=== PATIENT | female | born 1965 | race Caucasian/White ===

== ENCOUNTER 2019-02-19 18:31 | Emergency (ER) | payer BC ==
--- NOTE | 2019-02-19 19:08 | Emergency Department Record ---
History of Present Illness - General Chief complaint: Cold Stated complaint: COLD AND COUGH Time Seen by Provider: 02/19/19 18:48 Source: Patient Mode of Arrival: Ambulatory Limitations: No limitations - History of Present Illness Initial comments: Pt to ED with 2-3 days of cough. Smoker "lifetime" one pack per day. Cough non productive but fevers at home. No vomiting. No wheezing. No CP. Onset/Timin -: Week(s) Consistency: Constant Improves with: None Worsens with: None Associated Symptoms: Cough - Related Data Home Medications Medication Instructions Recorded Confirmed Last Taken Butalbital/Aspirin/Caffeine 1 each PO 02/19/19 Unknown [[id number] 50-325-40] Cyclobenzaprine HCl 10 mg PO DAILY 02/19/19 02/19/19 Unknown Furosemide [Lasix] 40 mg PO DAILY 02/19/19 02/19/19 Unknown Hydroxyzine Pamoate [Vistaril] 50 mg PO DAILY 02/19/19 02/19/19 Unknown Omeprazole 40 mg PO DAILY 02/19/19 02/19/19 Unknown Ondansetron HCl [Zofran] 8 mg PO ASDIR 02/19/19 02/19/19 Unknown Potassium Chloride [Klor-Con] 20 meq PO DAILY 02/19/19 02/19/19 Unknown Prochlorperazine Maleate 10 mg PO DAILY 02/19/19 02/19/19 Unknown [Compazine] Promethazine HCl [Phenergan] 25 mg PO DAILY 02/19/19 02/19/19 Unknown Previous Rx's Medication Instructions Recorded Benzonatate [Tessalon] 1 cap PO Q8H PRN 5 Days #16 cap 02/19/19 Doxycycline Monohydrate 100 mg PO BID 7 Days #14 capsule 02/19/19 Allergies Allergy/AdvReac Type Severity Reaction Status Date / Time celecoxib [From Celebrex] Allergy PT UNSURE Verified 02/19/19 18:45 OF REACTION gabapentin [From Neurontin] Allergy ALTERED Verified 02/19/19 18:45 MENTAL STATUS sumatriptan [From Imitrex] Allergy TACHYCARDIA Verified 02/19/19 18:45 antidepressants Allergy PT UNSURE Uncoded 02/19/19 18:45 OF REACTION Travel Screening - Travel/Exposure Within Last 30 Days Have you traveled within the last 30 days?: No Review of Systems Constitutional: Reports: Fever. Denies: Chills, Weakness Eyes: Denies: Eye discharge, Photophobia ENT: Denies: Congestion, Dental pain, Epistaxis Respiratory: Reports: As per HPI, Cough. Denies: Dyspnea, Hemoptysis, Stridor, Wheezes Cardiovascular: Denies: Arrhythmia, Chest pain, Syncope Endocrine: Denies: Fatigue Gastrointestinal: Reports: Nausea, Vomiting, Other (vomiting with cough. ). Denies: Abdominal pain Musculoskeletal: Reports: Arthralgia (chronic ) Skin: Denies: Bruising, Rash Neurological: Denies: Confusion, Tremors, Weakness Psychiatric: Denies: Anxiety, Suicidal thoughts Hematological/Lymphatic: Denies: Anemia Past Medical History - SOCIAL HISTORY Smoking Status: Current every day smoker Alcohol Use: None Drug Use: None - RESPIRATORY Hx Respiratory Disorders: No - CARDIOVASCULAR Hx Cardio Disorders: No - NEURO Hx Neuro Disorders: Yes Hx Headaches: Yes Comment:: pseudotumor - GI Hx GI Disorders: Yes Hx Reflux: Yes - Hx Genitourinary Disorders: No - ENDOCRINE Hx Endocrine Disorders: No - MUSCULOSKELETAL Hx Musculoskeletal Disorders: No - PSYCH Hx Psych Problems: No - HEMATOLOGY/ONCOLOGY Hx Hematology/Oncology Disorders: No Family Medical History Any Significant Family History?: No Physical Exam - General General Appearance: Alert, Oriented x3, Cooperative, No acute distress - Head Head exam: Normal inspection - Eye Eye exam: Normal appearance, PERRL - ENT ENT exam: Normal exam, Mucous membranes moist, Normal external ear exam, Normal orophraynx, TM's normal bilaterally - Neck Neck exam: Normal inspection, Full ROM. negative: Tenderness - Respiratory Respiratory exam: Rhonchi. negative: Accessory muscle use, Chest wall tenderness, Decreased breath sounds, Respiratory distress - Cardiovascular Cardiovascular Exam: Regular rate, Normal rhythm. negative: Tachycardia Peripheral Pulses: 2+: Radial (R), Radial (L) - GI/Abdominal GI/Abdominal exam: Soft, Normal bowel sounds. negative: Tenderness - Extremities Extremities exam: Normal inspection. negative: Tenderness - Back Back exam: Reports: Normal inspection - Neurological Neurological exam: Alert, Normal gait, Oriented X3 - Psychiatric Psychiatric exam: Normal affect, Normal mood - Skin Skin exam: Normal color. negative: Rash Course Vital Signs 02/19/19 18:37 Temperature 98.1 F Pulse Rate 113 H Respiratory 20 Rate Pulse Ox 98 - Reevaluation(s) Reevaluation #1: 02/19/19 19:00 see and exam. Smoker with cough and fever. Discussed smoking and need to stop. present - non smoker. Home with AB and follow up Disposition Disposition: Discharge Clinical Impression: Bronchitis, Tobacco abuse Condition: (1) Good Instructions: Acute Bronchitis (ED), How to Stop Smoking (ED) Additional Instructions: STOP smoking. Take meds as instructed. Family doctor recheck in 2-3 days Return to the ED as need. Prescriptions: Doxycycline Monohydrate 100 mg PO BID 7 Days #14 capsule Benzonatate [Tessalon] 1 cap PO Q8H PRN 5 Days #16 cap PRN Reason: Cough Time of Disposition: 19:08 Quality - Quality Measures Quality Measures: N/A - Blood Pressure Screening Does Patient Have Any of the Following: No Systolic Measurement: ~ Screening for High Blood Pressure: < Pre-Hypertensive BP, F/U Documented > [G8950] (pt refused BP) Pre-Hypertensive Follow-up Interventions: Follow-up with rescreen every year.
== END 2019-02-19 19:16 | disposition home or self-care (01) ==
LOC: ER 18:31
DX: J20.9 Acute bronchitis, unspecified (principal); F17.210 Nicotine dependence, cigarettes, uncomplicated
CPT/HCPCS: 99283